=== PATIENT | male | born 1995 | race Two or more races ===

== ENCOUNTER 2023-04-28 07:15 | Outpatient (CLI) | payer OTHER ==
--- NOTE | 2023-05-01 11:57 | MRI Report ---
PROCEDURE: Shoulder RT WO INDICATIONS: R SHOULDER PAIN TECHNIQUE: Noncontrast oblique coronal T2 fast spin echo with fat saturation, oblique sagittal T1 spin echo and T2 fast spin echo with fat saturation, axial T1 spin echo and T2 fast spin echo with fat saturation t hrough the shoulder. COMPARISON: None. FINDINGS: Image quality: Excellent. Rotator cuff: There is moderate supraspinatus tendinosis, and mild infraspinatus and subscapularis te ndinosis. There is low-grade partial-thickness tear of the distal supraspinatus tendon along articula r and bursal surfaces. No tendon rupture. No rotator cuff muscle atrophy on sagittal images. Bones and bursae: No bone marrow contusions or fractures. Mild acromioclavicular joint degeneration. The acromion demonstrates conventional anatomy, without an os acromiale. No pathologic subacromial /subdeltoid bursal fluid is present. Capsule and soft tissues: In the absence of intra-articular contrast, the labrum and glenohumeral li gaments appear intact. Mild tendinosis of the intra-articular segment of the long head of the biceps tendon which demonstrates normal location and morphology. The rotator interval appears normal, witho ut fibrosis. The coracohumeral ligament is normal in thickness. There are mildly enlarged axillary lymph nodes, measuring up to 1.5 cm in short axis, nonspecific. IMPRESSION: 1. Moderate supraspinous tendinosis. There is low-grade partial-thickness tear of the supraspinatus t endon. 2. Mild infraspinous and subscapularis tendinosis. 3. No high-grade tendon tear or tendon rupture. No rotator cuff muscle atrophy. 4. Mild stenosis of the proximal long head of the biceps tendon. 5. Mild acromioclavicular arthrosis. 6. Mildly enlarged axillary lymph nodes, which is nonspecific. Recommend clinical follow-up. Reviewed by: Alex Mejias MD on 05/01/2023 11:56 AM PDT Approved by: Alex Mejias MD on 05/01/2023 11:56 AM PDT Station ID: [id number]
== END 2023-04-28 07:16 | disposition home or self-care (01) ==
LOC: DI 07:15
DX: M75.111 Incomplete rotator cuff tear or rupture of right shoulder, not specified as traumatic (principal); M19.011 Primary osteoarthritis, right shoulder; M67.921 Unspecified disorder of synovium and tendon, right upper arm